=== PATIENT | female | born 2005 | race Caucasian/White ===

== ENCOUNTER 2023-07-26 15:51 | Emergency (ER) | payer OTHER ==
[2023-07-26] MEDS ORDERED: Ibuprofen 200 MG TAB ONE (17:23)
[2023-07-26] MEDS ORDERED: Acetaminophen 500 MG TAB ONE (17:23)
== END 2023-07-26 18:00 | disposition home or self-care (01) ==
LOC: CSHERS 15:51
DX: R07.2 Precordial pain (principal)
CPT/HCPCS: 71045; 93005